=== PATIENT | male | born 1950 | race Caucasian/White ===

== ENCOUNTER 2022-02-17 11:31 | Outpatient (CLI) | payer MEDICARE, OTHER, SELFPAY ==
[2022-02-17 14:03] LABS: Cholesterol* 172 mg/dL (90-199)
[2022-02-17 14:04] LABS: HDL Cholesterol* 39 mg/dL (>=40); LDL Cholesterol Calculated 82 mg/dL (<100); Triglycerides* 253 mg/dL (40-149)
[2022-02-17 14:51] LABS: PSA Screen* < 0.06 ng/mL (0.10-4.00)
== END 2022-02-17 11:32 | disposition home or self-care (01) ==
PROVIDERS: PCP Internal Medicine; Visit Provider Internal Medicine
DX: Z00.00 Encounter for general adult medical examination without abnormal findings (principal); E78.5 Hyperlipidemia, unspecified; Z85.46 Personal history of malignant neoplasm of prostate; Z12.5 Encounter for screening for malignant neoplasm of prostate; I25.10 Atherosclerotic heart disease of native coronary artery without angina pectoris; R49.0 Dysphonia; K21.9 Gastro-esophageal reflux disease without esophagitis; H40.9 Unspecified glaucoma
CPT/HCPCS: 80061; 84153

== ENCOUNTER 2023-02-16 07:23 | Outpatient (CLI) | payer MEDICARE, OTHER, SELFPAY ==
--- OUTSIDE RECORDS SUMMARY | 2023-02-16 12:46 | XMS_ITS | Continuity of Care Document ---
Author Name Unknown Organization [facility] Address [address] [place] [address] Phone Care Team Providers Care Lithostripper Name Role Phone [facility] Unavailable Unavailable Allergies, Adverse Reactions, Alerts Substance Reaction Status Criticality No Known Drug Allergies Active No I nformation Medications Medication Instructions Dosage Effective Dates (start - stop) Status Comments timolol maleate 0.5 % eye drops apply 1 drop by ophthalmic route 1 times every day both eyes - Active atorvastatin 80 mg tablet take 1 tablet by oral route every day 80 MG - Active metoprolol succinate ER 25 mg tablet,extended release 24 hr take 1 tablet by oral route every day 25 MG - Active omeprazole 20 mg capsule,delayed release take 1 capsule by oral route every day before a meal 20 MG - Active Procedures Procedure Date Laser Capsulotomy Advance Directives Directive Yes / No Effective Date File Name Resuscitation Not Answered N/A N/A Other Directive Located at home N/A N/A WARNING:The information contained in this section is historical and is provided for information only and does not constitute a legal document or any assurance that the information is still accurate. Please verify the information with the dejesus of the legal document before using it for clinical purposes. Encounters Encounter Description Practice Location Reason(s) For Visit Diagnoses Date Provider Providers Copied on Encounter [facility], [address] [place], [place], [id number], [place] tel:[phone] [facility] No Information 0 [facility]. [address] [place], [place], [id number]. tel:[phone] Referring Provider: Eamon Jamil, [address] [place] [address], [place], [place], [id number]. tel:[phone] [facility], [address] [facility] [place], [id number], tel:[phone] [facility] No Information 5 Kirk Knutson. [address] [place] [address], [id number], . tel:[phone] Family History Family Member Type Diagnosis Age At Onset No Information Payers Payer name Insurance type Covered democrat ID Era dye(s) [employer] 16 [id number] Social History Type Description Quantity Date Captured Comments Alcohol Use Details Unknown Caffeine Use Details Unknown Tobacco Use Status No Information Smoking Status No Information Sex Male Vital Signs Date / Time: Height Weight BMI Pulse Rate Blood Pressure Temperature Respiratory Rate Body Surface Area Head Circumference BMI percentile Pulse Ox Inhaled Ox 1:43 PM 48 /min 116/70 mm[Hg] 16 /min 98 Chief Complaint And Reason For Visit No Information History Of Present Illness Encounter Date Complaint History Of Prese nt Illness No Information Instructions Date Instruction Additional Infor mation No Information Assessments Type Assessment Date No Information
--- OUTSIDE RECORDS SUMMARY | 2023-02-16 12:46 | XMS_ITS | Continuity of Care Document ---
Author Name Unknown Organization [facility] Address [address] [place] [address] Phone Care Team Providers Care Auto Transmission Technician Name Role Phone Eamon Bradley M.D. Unavailable Unavailab le Allergies, Adverse Reactions, Alerts Substance Reaction Status Criticality No Known Allergies Active No Inform ation Medications Medication Instructions Dosage Effective Dates (start - stop) Status Comments Betimol 0.5 % eye drops BID OU - Active atorvastatin 80 mg tablet - Acti ve metoprolol succinate ER 25 mg tablet,extended release 24 hr - Active omeprazole 20 mg capsule,delayed release - Active Procedures Procedure Date Laser Capsulotomy OFFICE/OUTPATIENT VISIT, NEW OFFICE/OUTPATIENT VISIT, EST Laser Capsulotomy OFFICE/OUTPATIENT VISIT, EST POSTOP FOLLOW-UP VISIT IStent (Insert Ant Segment Drain Int) Ap CATARACT SURG W/IOL, 1 STAGE Toric Refractive Package OFFICE/OUTPATIENT VISIT, EST Optic Nerve Head Eval Performed 015 IOL Master POSTOP FOLLOW-UP VISIT Optic Nerve Head Eval Performed 015 IStent (Insert Ant Segment Drain Int) Ap CATARACT SURG W/IOL, 1 STAGE Toric Refractive Package OFFICE/OUTPATIENT VISIT, EST IOL Master Corneal Topography Optic Nerve Head Eval Performed 015 Encounter Should Not Have Been Created M OFFICE/OUTPATIENT VISIT, NEW IOL Master Optic Nerve Head Eval Performed Advance Directives Directive Yes / No Effective Date File Name No Information Encounters Encounter Description Practice Location Reason(s) For Visit Diagnoses Date Provider Providers Copied on Encounter [facility], [address] [place] [address], [id number], tel:[phone] [facility] No Information 0 Kirk Knutson. [address] [place] [address], [id number] , [place]. tel:[phone] Referring Provider: [facility] [address], [address]. tel:[phone] OFFICE/OUTPAT IENT VISIT, NEW [facility], [address] [place] [address], [id number], tel:[phone] [facility] blurry vision (chief complaint) Other secondary cataract, left eye 0 Kirk Knutson. [address] [place] [address], [id number] , [place]. tel:[phone] Referring Provider: [facility] [address], [address]. tel:[phone] OFFICE/OUTPAT IENT VISIT, EST [facility], [address] [place] [address], [id number], [place] tel:[phone] [facility] floaters (chief complaint) Other vitreous opacity of right eye 7 Kirk Knutson. [address] [place] [address], [id number] , [place]. tel:[phone] Referring Provider: Eamon Jamil, [address] [place] [address], [id number]. tel:[phone] [facility], [address] [place] [address], [id number], [place] tel:[phone] [facility] No Information Kirk Knutson. [address] [place] [address], [id number] , [place]. tel:[phone] Referring Provider: [facility] [address], [address]. tel:[phone] OFFICE/OUTPAT IENT VISIT, EST [facility], [address] [place] [address], [id number], [place] tel:[phone] [facility] blurry vision (chief complaint) Other secondary cataract, right eyeOther vitreous opacity of right eye Kirk Knutson. [address] [place] [address], [id number] , [place]. tel:[phone] Referring Provider: [facility] [address], [address]. tel:[phone] [facility], [address] [place] [address], [id number], [place] tel:[phone] [facility] no complaints OD (chief complaint)vi nelly is improved OD (chief complaint)no complaints (chief complaint)vi nelly is improved (chief complaint)Pr ed, Oflox, Ket OD qid (chief complaint) No Information Kirk Knutson. [address] [place] [address], [id number] , [place]. tel:[phone] Referring Provider: Eamon Jamil, [address] [place] [address], [id number]. tel:[phone] [facility], [address] [place] [address], [id number], [place] tel:[phone] [facility] No Information Kirk Knutson. [address] [place] [address], [id number] , [place]. tel:[phone] Referring Provider: [facility] [address], [address]. tel:[phone] OFFICE/OUTPAT IENT VISIT, [facility], [address] [place] [address], [id number], [place] tel:[phone] [facility] glare (chief complaint)gl aucoma (chief complaint) OAG - Open-angle glaucomaSenile nuclear sclerotic cataract Apr-1 5 Kirk Knutson. [address] [place] [address], [id number] , [place]. tel:[phone] Referring Provider: Eamon Jamil, [address] [place] [address], [id number]. tel:[phone] [facility], [address] [place] [address], [id number], [place] tel:[phone] [facility] VA is blurry but improving OS (chief complaint)no complaints OS (chief complaint)of loxacin, ketorolac & pred qid OS (chief complaint)VA is blurry but improving (chief complaint)no complaints (chief complaint)of loxacin, ketorolac & pred qid (chief complaint) No Information Apr-0 5 Kirk Knutson. [address] [place] [address], [id number] , [place]. tel:[phone] Referring Provider: Eamon Jamil, [address] [place] [address], [id number]. tel:[phone] [facility], [address] [place] [address], [id number], [place] tel:[phone] [facility] No Information Apr-0 5 Kirk Knutson. [address] [place] [address], [id number] , [place]. tel:[phone] Referring Provider: [facility] [address], [address]. tel:[phone] OFFICE/OUTPAT IENT VISIT, [facility], [address] [place] [address], [id number], [place] tel:[phone] [facility] glare (chief complaint)gl aucoma (chief complaint) OAG - Open-angle glaucomaMild stage glaucomaSenile nuclear sclerotic cataract 5 Kirk Knutson. [address] [place] [address], [id number] , [place]. tel:[phone] Referring Provider: Eamon Jamil, [address] [place] [address], [id number]. tel:[phone] [facility], [address] [place] [address], [id number], [place] tel:[phone] [facility] No Information 5 Kirk Knutson. [address] [place] [address], [id number] , [place]. tel:[phone] OFFICE/OUTPAT IENT VISIT, [facility], [address] [place] [address], [id number], [place] tel:[phone] [facility] blurry vision (chief complaint) OAG - Open-angle glaucomaMild stage glaucomaSenile nuclear sclerotic cataract 5 Kirk Knutson. [address] [place] [address], [id number] , [place]. tel:[phone] Referring Provider: [facility] [address] [place] [address], [id number]. tel:[phone] Family History Family Member Type Diagnosis Age At Onset No Information Payers Payer name Insurance type Covered libertarian ID Authorantonioa hardik(s) [employer] 16 [id number] Social History Type Description Quantity Date Captured Comments Sex Male Smoking Status No Information Chief Complaint And Reason For Visit No Information History Of Present Illness Encounter Date Complaint History Of Prese nt Illness blurry vision The 69 year old male presents for evaluation of blurry vision at distance in the left eye x 2-3 months.Pt also states he has occasional floaters OS>OD but denies flashes of light. floaters The 66 year old male presents for evaluation of floaters in the right eye. Pt states that he has had an increase in floaters in the last 2 days. No curtain affect noted. Did see Dr. Mayer last week and she noted the retina looked fine. No ocular discomfort. blurry vision The 66 year old male presents for evaluation of blurry vision in the right eye. It affects distance vision. The condition is worsening over the past few months. Pred, Oflox, Ket OD qid vision is improved vision is imp roved OD no complaints no complaints OD glare The 64 year old male presents for evaluation of glare in the right eye for the past 6-12 months. It affects distance vision. The condition is limiting patient's driving. The condition is described as having glare. In addition, the condition is associated with driving with oncoming lights. glaucoma The patient is p resent for evaluation of glaucoma in the right eye and left eye. It started about 3 year(s) ago. It occurs all the time. The condition is stable. Alphagan BID OU, & Latanoprost QHS OU. ofloxacin, ketorolac & pred qid ofloxacin, ketorolac & pred qid OS no complaints no complaints OS VA is blurry but improving VA is blurry but improving OS glare The 64 year old male presents for evaluation of glare in the right eye and left eye for the past 6-12 months. It affects distance vision. The condition is limiting patient's driving. The condition is described as having glare. In addition, the condition is associated with driving with oncoming lights. glaucoma The patient is p resent for evaluation of glaucoma in the right eye and left eye. It started about 3 year(s) ago. It occurs all the time. The condition is stable. Alphagan BID OU. Last used this morning. Latanoprost QHS OU. Last used September 18. He ran out of the drop. blurry vision The 63 year old male presents for evaluation of gradual onset blurry vision in the right eye and left eye jonathan the last year. Distance detail hard to sees. 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 Instructions Date Instruction Additional Infor elissa Impression/Plan Related to Other secondary cataract, left eye Impression/Plan - Di scussed diagnosis in detail with patient. Discussed signs and symptoms of retinal detachment. Patient instructed to call immediately if the patient notices an increase in floaters, flashes intensity or frequency. Patient should also call if a black, red or orange veil develops or if a monocular visual field defect develeps, especially in the inferior visual field. Related to Other vitreous opacity of right eye Impression/Plan - PC O account for the patient's complaints. Discussed all risks, benefits, procedures and recovery. Patient understands changing glasses will not improve vision. Patient desires to have surgery, recommend posterior yag capsulotomy OD. Related to Other secondary cataract, right eye Impression/Plan - Di scussed diagnosis in detail with patient. Discussed signs and symptoms of retinal detachment. Patient instructed to call immediately if the patient notices an increase in floaters, flashes intensity or frequency. Patient should also call if a black, red or orange veil develops or if a monocular visual field defect develeps, especially in the inferior visual field. Related to Other vitreous opacity of right eye TORIC refractive, iStent, distan ce Related to Senile nuclear sclerotic cataract Impression/Plan - Re commend iStent OD. Continue latanoprost qhs ou for now. Related to OAG - Open-angle glaucoma Follow up - TORIC re fractive, iStent, distance Related to Senile nuclear sclerotic cataract Impression/Plan Related to Senil e nuclear sclerotic cataract Follow up - distance, toric, ist ent, Related to Senile nuclear sclerotic cataract Impression/Plan - Ca taract accounts for patient's complaints. Discussed all risks, benefits, and alternatives of surgical procedure and the expected timeline and degree of recovery. Patient understands changing glasses will not improve vision. Discussed medical appropriateness of monofocal, toric monofocal, multifocal, and Crystalens options with patient and or guardian. Patient understands implications and desires to have surgery, recommend iStent and PE w/IOL OD, IOLMaster/A-scan ordered and reviewed for patient's desired post-operative refractive error. Related to Senile nuclear sclerotic cataract TORIC refractive, iStent, distan ce Related to Senile nuclear sclerotic cataract Impression/Plan - Re commend iStent ou. Continue latanoprost qhs ou for now. Related to OAG - Open-angle glaucoma Impression/Plan Related to Mild stage glaucoma Follow up - TORIC re fractive, iStent, distance Related to Senile nuclear sclerotic cataract Impression/Plan - Ca taract accounts for patient's complaints. Discussed all risks, benefits, and alternatives of surgical procedure and the expected timeline and degree of recovery. Patient understands changing glasses will not improve vision. Discussed medical appropriateness of monofocal, toric monofocal, multifocal, and Crystalens options with patient and or guardian. Patient understands implications and desires to have surgery, recommend iStent and PE w/IOL OS, IOLMaster/A-scan ordered and reviewed for patient's desired post-operative refractive error. Related to Senile nuclear sclerotic cataract iStent, CE with IOL OS, distance (needs to be out of RGP x 1 month prior to IOLM) Related to Senile nuclear sclerotic cataract Impression/Plan - Recommend iSte nt Related to OAG - Open-angle glaucoma Impression/Plan Related to Mild stage glaucoma Follow up - iStent, CE with IOL OS, distance (needs to be out of RGP x 1 month prior to IOLM) never on flomax Related to Senile nuclear sclerotic cataract Impression/Plan - Ca taract accounts for patient's complaints. Discussed all risks, benefits, and alternatives of surgical procedure and the expected timeline and degree of recovery. Patient understands changing glasses will not improve vision. Discussed medical appropriateness of monofocal, toric monofocal, multifocal, and Crystalens options with patient and or guardian. Patient understands implications and desires to have surgery, recommend iStent and PE w/IOL OS, IOLMaster/A-scan ordered and reviewed for patient's desired post-operative refractive error. Related to Senile nuclear sclerotic cataract Assessments Type Assessment Date No Information
== END 2023-02-16 07:24 | disposition home or self-care (01) ==
LOC: NFLDREF 12:44
PROVIDERS: PCP Internal Medicine; Referring Provider Internal Medicine; Visit Provider Internal Medicine
DX: E78.5 Hyperlipidemia, unspecified (principal); I25.10 Atherosclerotic heart disease of native coronary artery without angina pectoris; Z12.5 Encounter for screening for malignant neoplasm of prostate
CPT/HCPCS: 80048; 80061; 84153

== ENCOUNTER 2023-03-20 07:05 | Outpatient (CLI) | payer MEDICARE, OTHER, SELFPAY ==
--- NOTE | 2023-03-20 07:15 | CRLHL7_ITS ---
For Patients: As a result of the Cures Act, medical imaging exams and procedure reports are released immediately into your electronic medical record. You may view this report before your referring provider. If you have questions, please contact your health care provider. Examination: US abdominal aorta Indication: Abdominal aortic aneurysm screening. Technique: Obregon scale and color Doppler images of the aorta and common iliac arteries are obtained. Comparison: None Findings: Proximal aorta: 2.8 x 2.5 cm Mid aorta: 2.0 x 2.7 cm Distal aorta: 1.7 x 2.1 cm Right common iliac artery: 1.3 x 1.6 cm Left common iliac artery: 1.5 x 1.2 cm Impression: No abdominal aortic aneurysm. Dictated by Case Herman MD @ 03/20/2023 8:25:40 AM (Electronically Signed)
== END 2023-03-20 07:06 | disposition home or self-care (01) ==
PROVIDERS: PCP Internal Medicine; Visit Provider Internal Medicine
DX: Z13.6 Encounter for screening for cardiovascular disorders (principal); Z82.49 Family history of ischemic heart disease and other diseases of the circulatory system
CPT/HCPCS: 76706

== ENCOUNTER 2024-04-09 11:58 | Outpatient (CLI) | payer MEDICARE, OTHER, SELFPAY ==
--- OUTSIDE RECORDS SUMMARY | 2024-04-09 08:39 | XMS_ITS | Continuity of Care Document ---
Author Organization [facility] Address [address] [place] [address] Phone Care Team Providers Care Mirror Framer Name Role Phone [facility] Unavailable Unavailable Allergies, Adverse [...] before a meal 20 MG - Active Zetia 10 mg tablet take 1 tablet by oral route every day 10 MG - No Longer Active Alphagan P 0.1 % eye drops instill 1 drop by ophthalmic route every 8 hours into affected eye(s) 1.00 drop - No Longer Active latanoprost 0.005 % eye drops instill 1 drop by ophthalmic route every day into affected eye(s) in the evening 1.00 drop - No Longer Active ketorolac 0.5 % eye drops instill 1 drop by ophthalmic route 4 times every day into affected eye(s) - No Longer Active ofloxacin 0.3 % eye drops instill 1 drop by ophthalmic route 4 times every day into affected eye(s) 1.00 drop - No Longer Active prednisolone acetate 1 % eye drops,suspension instill 1 drop by ophthalmic route 4 times every day affected eye 1 drop - No Longer Active Procedures Procedure Date Laser Capsulotomy Advance [...] Diagnoses Date Provider Providers Copied on Encounter [facility], [address] [place] [address], [id number], tel:[phone] [facility] No Information 0 [facility]. [address], [place], [id number]. tel:[phone] Referring Provider: Eamon Jamil, [address] [place] [address], [id number] . tel:[phone] [facility], [address] [place] [address], [id number], [place] tel:[phone] [facility] No Information 5 Kirk Knutson. [address] [place] [address], [id number], . tel:[phone] Family History Family Member Type Diagnosis Age At Onset No Information Payers Payer name Insurance type Covered constitution party ID Authoriza tiamber(s) [employer] 16 [id number] Social History Type Description Quantity Date Captured Comments Alcohol Use Details Unknown Caffeine Use Details Unknown Tobacco Use Status No Information Smoking Status No Information Sex Male Vital Signs Date / Time: Height Weight BMI Pulse Rate Blood Pressure Temperature Respiratory Rate Body Surface Area Head Circumference Head Circ. Percentile Wt./Arnulfo. Percentile BMI percentile Pulse Ox Inhaled Ox 1:43 PM 48 /min 116/70 mm[Hg] 16 /min 98 % Chief Complaint And Reason For Visit No Information Reason For Referral Reason For Referral No Information History Of Present Illness Encounter Date Complaint History Of Prese nt Illness No Information Functional Status Date Functional Assessmen t No Information Instructions Date Instruction Additional Infor mation No Information Assessments Type Assessment Date No Information Patient Care Teams Name Effective Dates (start - stop) Status Members No Information
--- OUTSIDE RECORDS SUMMARY | 2024-04-09 08:39 | XMS_ITS | Continuity of Care Document ---
Author Organization [facility] Address [address] [place] [address] Phone Care Team Providers Care Laborer Plumbing Name Role Phone Eamon Bradley M.D. Unavailable [...] VISIT IStent (Insert Ant Segment Drain Int) CATARACT SURG W/IOL, 1 STAGE Toric Refractive [...] IOL Master Optic Nerve Head Eval Performed 015 Advance Directives Directive Yes / No Effective Date File Name No Information Encounters Encounter Description Practice Location Reason(s) For Visit Diagnoses Date Provider Providers Copied on Encounter [facility], [address] [place] [address], [id number], [place] tel:[phone] [facility] No Information 0 Kirk Knutson. [address] [place] [address], [id number] , [place]. tel:[phone] Referring Provider: Maira bae, [facility] [address] [place] [address] , [place], [address]. tel:[phone] OFFICE/OUTPAT IENT VISIT, NEW [facility], [address] [place] [address], [id number], [place] tel:[phone] [facility] blurry vision (chief complaint) Other secondary cataract, left eye 0 Kirk Knutson. [address] [place] [address], [id number] , [place]. tel:[phone] Referring Provider: Maira bae, [facility] [address] [place] [address] , [place], [address]. tel:[phone] OFFICE/OUTPAT IENT VISIT, EST [facility], [address] [place] [address], [id number], [place] tel:[phone] [facility] floaters (chief complaint) Other vitreous opacity of right eye 7 Kirk Knutson. [address] [place] [address], [id number] , [place]. tel:[phone] Referring Provider: Eamon Jamil, [address] [place] [address], [id number] . tel:[phone] [facility], [address] [place] [address], [id number], [place] tel:[phone] [facility] No Information Kirk Knutson. [address] [place] [address], [id number] , [place]. tel:[phone] Referring Provider: Maira bae, [facility] [address] [place] , [place], [address]. tel:[phone] OFFICE/OUTPAT IENT VISIT, EST [facility], [address] [place] [address], [id number], [place] tel:[phone] [facility] blurry vision (chief complaint) Other secondary cataract, right eyeOther vitreous opacity of right eye Kirk Knutson. [address] [place] [address], [id number] , [place]. tel:[phone] Referring Provider: Maira bae, [facility] [address] [place] , [place], [address]. tel:[phone] [facility], [address] [place] [address], [id number], [place] tel:[phone] [facility] no complaints OD (chief complaint)vi nelly is improved OD (chief complaint) No Information 5 Kirk Knutson. [address] [place] [address], [id number] , [place]. tel:[phone] Referring Provider: Eamon Jamil, [address] [place] [address], [id number] . tel:[phone] [facility], [address] [place] [address], [id number], [place] tel:[phone] [facility] No Information 5 Kirk Knutson. [address] [place] [address], [id number] , [place]. tel:[phone] Referring Provider: Maira bae, [facility] [address] [place] , [place], [address]. tel:[phone] OFFICE/OUTPAT IENT VISIT, EST [facility], [address] [place] [address], [id number], [place] tel:[phone] [facility] glare (chief complaint)gl aucoma (chief complaint) OAG - Open-angle glaucomaSenile nuclear sclerotic cataract Oct-1 3-201 5 Kirk Knutson. [address] [place] [address], [id number] , [place]. tel:[phone] Referring Provider: Eamon Jamil, [address] [place] [address], [id number] . tel:[phone] [facility], [address] [place] [address], [id number], [place] tel:[phone] [facility] [place] is blurry but improving OS (chief complaint)no complaints OS (chief complaint)of loxacin, ketorolac & pred qid OS (chief complaint) No Information Oct-0 8 5 Kirk Knutson. [address] [place] [address], [id number] , [place]. tel:[phone] Referring Provider: Eamon Jamil, [address] [place] [address], [id number] . tel:[phone] [facility], [address] [place] [address], [id number], [place] tel:[phone] [facility] No Information Oct-0 8 5 Kirk Knutson. [address] [place] [address], [id number] , [place]. tel:[phone] Referring Provider: Maira bae, [facility] [address] [place], [address]. tel:[phone] OFFICE/OUTPAT IENT VISIT, EST [facility], [address] [place] [address], [id number], [place] tel:[phone] [facility] glare (chief complaint)gl aucoma (chief complaint) OAG - Open-angle glaucomaMild stage glaucomaSenile nuclear sclerotic cataract Sep- 6 5 Kirk Knutson. [address] [place] [address], [id number] , . tel:[phone] Referring Provider: Eamon Jamil, [address] [place] [address], [id number] . tel:[phone] [facility], [address] [place] [address], [id number], tel:[phone] [facility] No Information 5 Kirk Knutson. [address] [place] [address], [id number] , [place]. tel:[phone] OFFICE/OUTPAT IENT VISIT, [facility], [address] [place] [address], [id number], tel:[phone] [facility] blurry vision (chief complaint) OAG - Open-angle glaucomaMild stage glaucomaSenile nuclear sclerotic cataract Kirk Knutson. [address] [place] [address], [id number] , . tel:[phone] Referring Provider: Maira bae, [facility] [address] [facility], [place], [address]. tel:[phone] Family History Family Member Type Diagnosis Age At Onset No Information Payers Payer name Insurance type Covered democrat ID Authoriza hardik(s) Jignesha 16 [id number] Social History Type Description Quantity Date Captured [...] perm wearer only out a couple days. Functional Status Date Functional Assessmen t No Information Instructions Date Instruction Additional Infor elissa Impression/Plan [...] Senile nuclear sclerotic cataract TORIC refractive, iStent, mehdian ce Related to Senile nuclear sclerotic cataract [...] cataract Assessments Type Assessment Date No Information Patient Care Teams Name Effective Dates (start - stop) Status Members No Information
== END 2024-04-09 11:59 | disposition home or self-care (01) ==
PROVIDERS: PCP Internal Medicine; Visit Provider Internal Medicine
DX: Z00.00 Encounter for general adult medical examination without abnormal findings (principal); E78.5 Hyperlipidemia, unspecified; I25.10 Atherosclerotic heart disease of native coronary artery without angina pectoris; Z12.5 Encounter for screening for malignant neoplasm of prostate
CPT/HCPCS: 80061; G0103

== ENCOUNTER 2024-04-29 06:28 | Outpatient (CLI) | payer MEDICARE, OTHER, SELFPAY ==
--- OUTSIDE RECORDS SUMMARY | 2024-04-29 06:39 | XMS_ITS | Continuity of Care Document ---
Author Organization [facility] Address [address] [place] [address] Phone Care Team Providers Care Certified Histologic Technician Name Role Phone Eamon Bradley M.D. [...] Diagnoses Date Provider Providers Copied on Encounter [facility], [address] [place] [address], [id number], [place] tel:[phone] [facility] No Information 0 Kirk Knutson. [address] [place] [address], [id number] , [place]. tel:[phone] Referring Provider: Maira bae, [facility] [address] [place] [address] , [place], [address]. tel:[phone] OFFICE/OUTPAT IENT VISIT, NEW [facility], [address] [place] [address], [id number], [place] tel:[phone] [facility] blurry vision (chief complaint) Other secondary cataract, left eye 0 Kirk Knutson. [address] [place] [address], [id number] , [place]. tel:[phone] Referring Provider: Maira bae, [facility] [address] [place] [address] , [place], [address]. tel:[phone] OFFICE/OUTPAT IENT VISIT, EST [facility], [address] [place] [address], [id number], [place] tel:[phone] [facility] floaters (chief complaint) Other vitreous opacity of right eye 7 Kirk Knutson. [address] [place] [address], [id number] , [place]. tel:[phone] Referring Provider: Eamon Jamil, [address] [place] [address], [id number] . tel:[phone] [facility], [address] [place] [address], [id number], [place] tel:[phone] [facility] No Information Kirk Knutson. [address] [place] [address], [id number] , [place]. tel:[phone] Referring Provider: Maira bae, [facility] [address] [place] , [place], [address]. tel:[phone] OFFICE/OUTPAT IENT VISIT, EST [facility], [address] [place] [address], [id number], [place] tel:[phone] [facility] blurry vision (chief complaint) Other secondary cataract, right eyeOther vitreous opacity of right eye Kirk Knutson. [address] [place] [address], [id number] , [place]. tel:[phone] Referring Provider: Maira bae, [facility] [address] [place] , [place], [address]. tel:[phone] [facility], [address] [place] [address], [id number], [place] tel:[phone] [facility] no complaints OD (chief complaint)vi nelly is improved OD (chief complaint) No Information 5 Kirk Knutson. [address] [place] [address], [id number] , [place]. tel:[phone] Referring Provider: Eamon Jamil, [address] [place] [address], [id number] . tel:[phone] [facility], [address] [place] [address], [id number], [place] tel:[phone] [facility] No Information 5 Kirk Knutson. [address] [place] [address], [id number] , [place]. tel:[phone] Referring Provider: Maira bae, [facility] [address] [place] , [place], [address]. tel:[phone] OFFICE/OUTPAT IENT VISIT, EST [facility], [address] [place] [address], [id number], [place] tel:[phone] [facility] glare (chief complaint)gl aucoma (chief complaint) OAG - Open-angle glaucomaSenile nuclear sclerotic cataract Oct-1 3-201 5 Kirk Knutson. [address] [place] [address], [id number] , [place]. tel:[phone] Referring Provider: Eamon Jamil, [address] [place] [address], [id number] . tel:[phone] [facility], [address] [place] [address], [id number], [place] tel:[phone] [facility] [place] is blurry but improving OS (chief complaint)no complaints OS (chief complaint)of loxacin, ketorolac & pred qid OS (chief complaint) No Information Oct-0 8 5 Kirk Knutson. [address] [place] [address], [id number] , [place]. tel:[phone] Referring Provider: Eamon Jamil, [address] [place] [address], [id number] . tel:[phone] [facility], [address] [place] [address], [id number], [place] tel:[phone] [facility] No Information Oct-0 8 5 Kirk Knutson. [address] [place] [address], [id number] , [place]. tel:[phone] Referring Provider: Maira bae, [facility] [address] [place], [address]. tel:[phone] OFFICE/OUTPAT IENT VISIT, EST [facility], [address] [place] [address], [id number], [place] tel:[phone] [facility] glare (chief complaint)gl aucoma (chief complaint) OAG - Open-angle glaucomaMild stage glaucomaSenile nuclear sclerotic cataract Sep- 6 5 Kirk Knutson. [address] [place] [address], [id number] , . tel:[phone] Referring Provider: Eamon Jamil, [address] [place] [address], [id number] . tel:[phone] [facility], [address] [place] [address], [id number], tel:[phone] [facility] No Information 5 Kirk Knutson. [address] [place] [address], [id number] , [place]. tel:[phone] OFFICE/OUTPAT IENT VISIT, [facility], [address] [place] [address], [id number], tel:[phone] [facility] blurry vision (chief complaint) OAG - Open-angle glaucomaMild stage glaucomaSenile nuclear sclerotic cataract Kirk Knutson. [address] [place] [address], [id number] , . tel:[phone] Referring Provider: Maira bae, [facility] [address] [facility], [place], [address]. tel:[phone] Family History Family Member Type Diagnosis Age At Onset No Information Payers Payer name Insurance type Covered constitution party ID Authoriza hardik(s) Jignesha 16 [id number] Social History Type Description Quantity Date Captured [...]
--- OUTSIDE RECORDS SUMMARY | 2024-04-29 06:39 | XMS_ITS | Continuity of Care Document ---
Author Organization [facility] Address [address] [place] [address] Phone Care Team Providers Care Drafter (Cad) Electronic Name Role Phone [facility] Unavailable Unavailable [...] Diagnoses Date Provider Providers Copied on Encounter [facility], [address] [place] [address], [id number], tel:[phone] [facility] No Information 0 [facility]. [address], [place], [id number]. tel:[phone] Referring Provider: Eamon Jamil, [address] [place] [address], [id number] . tel:[phone] [facility], [address] [place] [address], [id number], [place] tel:[phone] [facility] No Information 5 Kirk Knutson. [address] [place] [address], [id number], . tel:[phone] Family History Family Member Type Diagnosis Age At Onset No Information Payers Payer name Insurance type Covered democrat ID Authoriza tiamber(s) [employer] [id number] Social History Type Description Quantity Date Captured [...]
--- OUTSIDE RECORDS SUMMARY | 2024-04-29 06:39 | XMS_ITS | Referral Summary ---
Author Organization [facility] Address [address] [place] [address] Care Team Providers Care Linux Admin Engineer Name Role Phone Oscar Vann MD Unavailable Dora Cline NP Unavailable [phone] Ref-Primary, Physician Primary Care Provider Allergies No known active allergies Medications Medication Sig Dispensed Refills Start Date End Date Status metoprolol succinate ER (TOPROL-XL) 25 MG 24 hr tablet Daily 08/10/2020 Active atorvastatin (LIPITOR) 80 MG tablet Bedtime 08/10/2020 Active aspirin (ASA) 325 MG EC tablet Daily 08/21/2020 Active magnesium gluconate (MAGONATE) 500 MG tablet Take 27 mg by mouth Activ e fish oil-omega-3 fatty acids 1000 MG capsule Take 4 capsules by mouth Active Social History Tobacco Use Types Packs/Day Years Used Date Smoking Tobacco: Never Assessed PHQ-2 Answer Date Recorded PHQ-2 Score 0 08/09/2021 Adolescent Education Answer Date Record ed Getting School Help Needed Not on file 04/09 Sex and Gender Information Value Date Recorded Sex Assigned at Not on file Gender Identity Not on file Sexual Orientation Not on file Last Filed Vital Signs Vital Sign Reading Time Taken Comments Blood Pressure 126/81 08/09/2021 9:32 AM FRUIT RECEIVER Pulse 52 08/09/2021 9:32 AM FRUIT RECEIVER Temperature 36.2 ??C (97.1 ??F) 08/09/2021 9:32 AM CS T Respiratory Rate - - Oxygen Saturation 97% 08/09/2021 9:32 AM FRUIT RECEIVER Inhaled Oxygen Concentration - - Weight 86.2 kg (190 lb) 08/09/2021 9:32 AM FRUIT RECEIVER Height 175.3 cm (5' 9) 08/09/2021 9:32 AM FRUIT RECEIVER Body Mass Index 28.06 08/09/2021 9:32 AM FRUIT RECEIVER Plan of Treatment Not on file Care Teams Linux Admin Engineer Relationship Specialty Start Date End Date No Ref-Primary, Physician PCP - General Primary Care - CC 07/16/21 Oscar Vann MD [facility] [address] [facility] [address] Referring Physician Otolaryngology 07/16/21 Dora Cline NP [address] [place], [place] [address] Nurse Practitioner ENT-Otolaryngology 07/16/21
--- OUTSIDE RECORDS SUMMARY | 2024-04-29 06:39 | XMS_ITS | Encounter Summary ---
Author Organization [place] Address [address] [facility] [place] [address] Care Team Providers Care Traffic Court Magistrate Name Role Phone Oscar Vann MD Unavailable Dora Cline NP Unavailable [phone] No Ref-Primary, Physician Primary Care Provider Dora Cline NP Unavailable [phone] Encounter Details Date Type Department Care Team (Late st Contact Info) Description 08/21/2020 External Order Results [facility] [address] [place] [address] Outside, Provider Social History Tobacco Use Types Packs/Day Years Used Date Smoking Tobacco: Never Assessed Sex and Gender Information Value Date Recorded Sex Assigned at Not on file Gender Identity Not on file Sexual Orientation Not on file documented as of this encounter Plan of Treatment Not on file documented as of this encounter Procedures Procedure Name Priority Date/Time Associated Diagnosis Comments COVID-19 VIRUS (CORONAVIRUS) BY PCR (EXTERNAL RESULT) Routine 08/21/2020 11:17 AM BARREL WASHER MACHINE documented in this encounter Results * COVID-19 Virus (Coronavirus) by PCR (External Result) (08/21/2020 11:17 AM BARREL WASHER MACHINE) COVID-19 Virus by PCR (External Result) ABSENT ABSENT NON-INTERFACED (ONBASE SCANS) 08/21/2020 11:1 7 AM BARREL WASHER MACHINE Narrative PRITESH PFT - 07/22/2021 10:39 AM BARREL WASHER MACHINE Verified by Alexandr Farrell on 07/22/2021. Provider Outside LABORATORY BREEZE PFT NON-INTERFACED (ONBASE SCANS) documented in this encounter Visit Diagnoses Not on filedocumented in this encounter Care Teams Traffic Court Magistrate Relationship Specialty Start Date End Date No Ref-Primary, Physician PCP - General Primary Care - CC 07/16/21 Oscar Vann MD [facility] [address] [facility] [place] [address] Referring Physician Otolaryngology 07/16/21 Dora Cline NP [address] [place] [address] Nurse Practitioner ENT-Otolaryngology 07/16/21 Dora Cline NP [address] [place] [address] Assigned Surgical Provider 08/15/21 02/10/23 documented as of this encounter
--- OUTSIDE RECORDS SUMMARY | 2024-04-29 06:39 | XMS_ITS | Clinical Summary ---
Author Organization [facility] Address [address] [place] [address] Care Team Providers Care Surtass Analyst Name Role Phone Oscar Vann MD Unavailable [phone] Dora Cline NP Unavailable [phone] Ref-Primary, Physician Primary Care Provider [...] Comments Blood Pressure 126/81 08/09/2021 9:32 AM CLEAT LAYER Pulse 52 08/09/2021 9:32 AM CLEAT LAYER Temperature 36.2 ??C (97.1 ??F) 08/09/2021 9:32 AM CS T Respiratory Rate - - Oxygen Saturation 97% 08/09/2021 9:32 AM CLEAT LAYER Inhaled Oxygen Concentration - - Weight 86.2 kg (190 lb) 08/09/2021 9:32 AM CLEAT LAYER Height 175.3 cm (5' 9) 08/09/2021 9:32 AM CLEAT LAYER Body Mass Index 28.06 08/09/2021 9:32 AM CLEAT LAYER Plan of Treatment Health Maintenance Due Date Last Done Comments ADVANCE CARE PLANNING 1949 ANNUAL REVIEW OF HM ORDERS 1949 CT COLONOGRAPHY 1949 FIT 1949 FLEX SIG 1949 GLUCOSE 1949 LIPID 1949 sDNA (Cologuard) 1949 COLONOSCOPY 1959 COLORECTAL CANCER SCREENING 1959 HEPATITIS C SCREENING 1967 ZOSTER IMMUNIZATION (2 of 3) 04/09/2012 02/13/2012 FALL RISK ASSESSMENT 2014 MEDICARE ANNUAL WELLNESS VISIT 05/19/2021 05/19/2020, 06/04/2019, 06/04/2018, Additional history exists PHQ-2 (once per calendar year) 2023 08/09/2021 COVID-19 Vaccine ( season) 2024 05/12/2021, 10/08/2020, 09/10/2020 INFLUENZA VACCINE (#1) 2024 2, 03/22/2021, 03/22/2021, Additional history exists RSV VACCINE (1 - 1-dose 75+ series) 2024 DTAP/TDAP/TD IMMUNIZATION (3 - Td or Tdap) 05/20/2026 05/20/2016, 05/20/2016, 05/11/2006, Additional history exists Pneumococcal Vaccine: 65+ Years Completed 06/04/2018, 04/21/2015 HPV IMMUNIZATION Aged Out No longer e ligible based on patient's age to complete this topic MENINGITIS IMMUNIZATION Aged Out No l onger eligible based on patient's age to complete this topic RSV MONOCLONAL ANTIBODY Aged Out No l onger eligible based on patient's age to complete this topic Care Teams Surtass Analyst Relationship Specialty Start Date End Date No Ref-Primary, Physician PCP - General Primary Care - CC 07/16/21 Oscar Vann MD [facility] [address] [place] [address] Referring Physician Otolaryngology 07/16/21 Dora Cline NP [address] [place] [id number] Nurse Practitioner ENT-Otolaryngology 07/16/21
--- NOTE | 2024-04-29 07:57 | P.ANES_ITS ---
Anesthesia Charges Start Date/Time Anesthesia Start Date: 04/29/24 Anesthesia Start Time: 07:15 Stop Date/Time Anesthesia Stop Date: 04/29/24 Anesthesia Stop Time: 07:54 Summary Extremes of Age - Over 70 or under 1: APPLICATION PENETRATION TESTER
--- NOTE | 2024-04-29 09:38 | W.ANESCHARGE ---
Anesthesia Charges Start Date/Time Anesthesia Start Date: 04/29/24 Anesthesia Start Time: 07:15 Stop Date/Time Anesthesia Stop Date: 04/29/24 Anesthesia Stop Time: 07:54 Summary Extremes of Age - Over 70 or under 1: MDA
== END 2024-04-29 06:29 | disposition home or self-care (01) ==
LOC: OP CLINIC 06:28
PROVIDERS: PCP Internal Medicine; Visit Provider Surgery
DX: Z12.11 Encounter for screening for malignant neoplasm of colon (principal); D12.2 Benign neoplasm of ascending colon; K57.30 Diverticulosis of large intestine without perforation or abscess without bleeding; Z86.0100 Personal history of colon polyps, unspecified
CPT/HCPCS: 00811; 45385; 88305; 99100; J2704

== ENCOUNTER 2024-11-04 10:29 | Outpatient (CLI) | payer MEDICARE, OTHER, SELFPAY | END 2024-11-04 10:30 | disposition home or self-care (01) | LOC: NFLDREF 10:33 | PROVIDERS: PCP Internal Medicine; Visit Provider Internal Medicine | DX: R10.11 Right upper quadrant pain (principal) | CPT/HCPCS: 80076 ==

== ENCOUNTER 2024-11-06 07:06 | Outpatient (CLI) | payer MEDICARE, OTHER, SELFPAY ==
--- NOTE | 2024-11-06 07:15 | CRLHL7_ITS ---
For Patients: As a result of the Century Cures Act, medical imaging exams and procedure reports are released immediately into your electronic medical record. You may view this report before your referring provider. If you have questions, please contact your health care provider. INDICATION: Right upper quadrant pain COMPARISON: Ultrasound aorta 03/20/2023 TECHNIQUE: Real time alexander scale imaging and color Doppler analysis was performed of the right upper quadrant. FINDINGS: The patient`s liver is of normal size and has diffusely increased/coarsened echogenicity. There is a normal appearance of the hepatic IVC and proximal abdominal aorta. There is no evidence of ascites. Echogenic focus is associated with the non dependent gallbladder wall measuring 3.9 millimeters. Two echogenic stones are present within the gallbladder neck which measure up to 9 millimeters. The gallbladder wall measures 2 mm in thickness. The common bile duct is of normal size and measures 5 mm in diameter at the level of the michael hepatis. The visualized pancreas appears normal. There is no evidence of a stone or hydronephrosis within the right kidney. The right kidney measures 10.9 cm in length. IMPRESSION: Cholelithiasis and 4 millimeter gallbladder polyp. Hepatic steatosis. Dictated by Case Herman MD @ 11/06/2024 8:44:19 AM (Electronically Signed)
== END 2024-11-06 07:07 | disposition home or self-care (01) ==
LOC: US 07:06
PROVIDERS: PCP Internal Medicine; Visit Provider Internal Medicine
DX: R10.11 Right upper quadrant pain (principal); K80.20 Calculus of gallbladder without cholecystitis without obstruction; K82.4 Cholesterolosis of gallbladder; K76.0 Fatty (change of) liver, not elsewhere classified
CPT/HCPCS: 76705

== ENCOUNTER 2024-11-14 07:24 | Outpatient (CLI) | payer MEDICARE, OTHER, SELFPAY ==
[2024-11-14 07:52] LABS: Estimated Glomerular Filt Rate 78 ml/min
--- NOTE | 2024-11-14 08:00 | CRLHL7_ITS ---
For Patients: As a result of the Century Cures Act, medical imaging exams and procedure reports are released immediately into your electronic medical record. You may view this report before your referring provider. If you have questions, please contact your health care provider. INDICATION: DORSALGIA, RIGHT MID BACK PAIN TECHNIQUE: CT chest, abdomen and pelvis acquired 97 milliliters Isovue 370 intravenous contrast. COMPARISON: None. FINDINGS: CHEST: Lungs and Airways: No mass or consolidation. No endoluminal lesion. Heart and Mediastinum: The visualized portions of the thyroid are normal. No axillary or supraclavicular lymphadenopathy. No mediastinal, hilar or retrocrural lymphadenopathy. Normal heart size. Normal caliber aorta. Atherosclerotic and coronary artery calcifications. Postoperative changes of open heart surgery. Pleura: The pleural spaces are normal. ABDOMEN: Liver: Normal enhancement. No focal suspicious hepatic lesions. Gallbladder and biliary: Cholelithiasis. Normal caliber bile ducts. Spleen: Normal size and enhancement. Pancreas: Normal enhancement without peripancreatic inflammatory changes or ductal dilatation. Adrenal glands: Normal adrenal glands. Kidneys and ureters: Normal enhancement. No radio-opaque calculi. No hydroureteronephrosis. GI tract: The stomach is relatively decompressed. Normal caliber small and large bowel loops. Normal appendix. Severe colonic diverticulosis without diverticulitis. Vascular structures: Normal caliber aorta with atherosclerotic calcifications. Lymph nodes: No lymphadenopathy in the abdomen or pelvis by size criteria. Peritoneum: No free air, free fluid, or focal drainable fluid collection. PELVIS: Genitourinary system: Normal urinary bladder. Prostatectomy. SKELETAL STRUCTURES AND SOFT TISSUES: Tiny fat containing umbilical hernia. Sternotomy wires. Multilevel lumbar spondylosis. Bilateral SI joint arthrosis. IMPRESSION: No imaging findings to explain the reported clinical symptoms. No acute process in the chest, abdomen, or pelvis. Please note that all CT scans at this facility use dose modulation, iterative reconstruction, and/or weight-based dosing when appropriate to reduce radiation dose to as low as reasonably achievable. Dictated by Case Fonseca MD @ 11/15/2024 6:30:13 PM (Electronically Signed)
== END 2024-11-14 07:25 | disposition home or self-care (01) ==
LOC: CT 07:25
PROVIDERS: PCP Internal Medicine; Visit Provider Surgery
DX: M54.9 Dorsalgia, unspecified (principal)
CPT/HCPCS: 36415; 71260; 74177; 82565; Q9967

== ENCOUNTER 2025-06-11 07:37 | Outpatient (CLI) | payer MEDICARE, OTHER, SELFPAY | END 2025-06-11 07:38 | disposition home or self-care (01) | LOC: NFLDREF 06-13 10:34 | PROVIDERS: PCP Internal Medicine; Referring Provider Internal Medicine; Visit Provider Internal Medicine | DX: E78.5 Hyperlipidemia, unspecified (principal); Z12.5 Encounter for screening for malignant neoplasm of prostate | CPT/HCPCS: 80048; 80061; G0103 ==

== ENCOUNTER 2025-06-30 08:05 | Outpatient (CLI) | payer MEDICARE, OTHER, SELFPAY ==
--- NOTE | 2025-06-30 08:15 | CRLHL7_ITS ---
For Patients: As a result of the Century Cures Act, medical imaging exams and procedure reports are released immediately into your electronic medical record. You may view this report before your referring provider. If you have questions, please contact your health care provider. INDICATION: Cholesterolosis of gallbladder. COMPARISON: 11/06/2024 TECHNIQUE: Real time alexander scale imaging and color Doppler analysis was performed of the right upper quadrant. FINDINGS: Liver measures 17.2 cm. Liver echotexture is diffusely increased. There is a normal appearance of the hepatic IVC and proximal abdominal aorta. There is no evidence of ascites. The gallbladder is of normal size and there is an echogenic focus associated with the non dependent gallbladder wall which measures 3 x 2 x 2 millimeters. There are 2 echogenic stones in the gallbladder neck measuring 8 millimeters and 9 millimeters. The gallbladder wall measures 1 mm in thickness. The common bile duct is of normal size and measures 3 mm in diameter at the level of the michael hepatis. The pancreas appears normal. There is no evidence of a stone or hydronephrosis within the right kidney. The right kidney measures 11.4 cm in length. IMPRESSION: Gallstones in the gallbladder neck and gallbladder polyp, not significantly changed. Mild hepatomegaly. Hepatic steatosis. Dictated by Case Herman MD @ 06/30/2025 5:01:01 PM (Electronically Signed)
== END 2025-06-30 08:06 | disposition home or self-care (01) ==
LOC: US 08:06
PROVIDERS: PCP Internal Medicine; Visit Provider Surgery
DX: K82.4 Cholesterolosis of gallbladder (principal); K76.0 Fatty (change of) liver, not elsewhere classified; R16.0 Hepatomegaly, not elsewhere classified
CPT/HCPCS: 76705